=== PATIENT | female | born 1995 | race Caucasian/White ===

== ENCOUNTER 2017-04-15 17:53 | Emergency (ER) | payer MEDICAID ==
[~2017-04-15] VITALS: Ht 154.9 cm; Wt 81.0 kg
[2017-04-15 18:02] VITALS: Ht 154.9 cm; Wt 81.0 kg
[2017-04-15] MEDS ORDERED: LIDOCAINE/MYLANTA 40 ML BTL PO ONE (20:00)
[2017-04-15] MEDS ORDERED: FAMOTIDINE 20 MG TAB PO ONE (20:00)
[2017-04-15 20:16] LABS: ADD SCAN DIFF NO
[2017-04-15 20:18] LABS: BASOPHILS % 0.1 % (0.0-2.0); EOSINOPHILS # 0.1 10^3/ul (0.0-0.5); EOSINOPHILS % 0.9 % (0.0-7.0); HEMATOCRIT 45.5 % (37.0-47.0); HEMOGLOBIN 15.5 g/dl (12.0-16.0); LYMPHOCYTES # 0.8 10^3/ul (0.8-2.9); LYMPHOCYTES % 9.4 % (18.0-55.0); MEAN CORPUSCULAR HEMOGLOBIN 28.2 pg (29.0-33.0); MEAN CORPUSCULAR HGB CONC 34.1 g/dl (32.0-37.0); MEAN CORPUSCULAR VOLUME 82.9 fl (72.0-104.0); MEAN PLATELET VOLUME 10.1 fl (7.4-10.4); MONOCYTE # 0.5 10^3/ul (0.3-0.9); MONOCYTES % 5.5 % (0.0-13.0); NEUTROPHIL # 6.8 10^3/ul (1.6-7.5); NEUTROPHILS % 83.9 % (30.0-74.0); PLATELET COUNT 305 10^3/UL (140-415); RED BLOOD COUNT 5.49 10^6/ul (4.20-5.40); RED CELL DISTRIBUTION WIDTH 12.7 % (11.5-14.5); WHITE BLOOD COUNT 8.1 10^3/ul (4.8-10.8)
[2017-04-15 20:24] LABS: ADD UMIC YES; UR ASCORBIC ACID NEGATIVE (NEGATIVE); UR BILIRUBIN (Dip) NEGATIVE (NEGATIVE); UR BLOOD (Dip) NEGATIVE (NEGATIVE); UR CLARITY SLIGHTLY CLOUDY (CLEAR); UR COLOR YELLOW (YELLOW); UR GLUCOSE (Dip) NEGATIVE (NEGATIVE); UR KETONES (Dip) 1+ mg/dL (NEGATIVE); UR LEUKOCYTE ESTERASE (Dip) 2+ Leu/ul (NEGATIVE); UR MUCUS MANY /HPF (NONE SEEN); UR NITRITE (Dip) NEGATIVE (NEGATIVE); UR RBC 4 /HPF (0-5); UR SPECIFIC GRAVITY (Dip) 1.031 (1.003-1.030); UR SQUAMOUS EPITHELIAL CELL FEW /HPF (FEW); UR TOTAL PROTEIN (Dip) 1+ mg/dl (NEGATIVE); UR UROBILINOGEN (Dip) 1+ mg/dL (NEGATIVE)
[2017-04-15 20:37] LABS: ALBUMIN 4.9 g/dl (3.3-4.9); ALBUMIN/GLOBULIN RATIO 1.53; BILIRUBIN,INDIRECT 0.3 mg/dl (0-1.1); BILIRUBIN,TOTAL 0.3 mg/dl (0.2-1.3); CALCIUM 8.8 mg/dl (8.4-10.2); CREATININE 0.58 mg/dl (0.44-1.00); POTASSIUM 3.7 mmol/L (3.5-5.1); TOTAL PROTEIN 8.1 g/dl (6.1-8.1)
[2017-04-15] MEDS ORDERED: ACETAMINOPHEN 325 MG TAB PO ONE (21:30)
[2017-04-15] MEDS ORDERED: PANTOPRAZOLE (EC) 40 MG TAB PO ONE (21:30)
[2017-04-15] MEDS ORDERED: morphine 4 MG/ML VIAL IV STA (22:31)
[2017-04-15] MEDS ORDERED: IOHEXOL 300MG/ML 150 ML BTL ONE (22:43)
[2017-04-15] MEDS ORDERED: SOD CHLORIDE 0.9% 100 ML ONE (22:43)
[2017-04-15] MEDS ORDERED: ONDANSETRON 4 MG INJ IV STA (23:20)
--- NOTE | 2017-04-15 23:31 | RADRPT ---
PROCEDURE: CT Abdomen and Pelvis with contrast. CLINICAL INDICATION: Epigastric left upper quadrant pain TECHNIQUE: CT scan of the abdomen and pelvis with contrast was performed on a multi-detector high- resolution CT scanner. The patient was scanned following the intravenous administration of 100 cc o f Omnipaque 300. Coronal and sagittal reformatted images were obtained from the axial source images . Images were reviewed on a high-resolution PACS workstation. The total exam CTDI equals 17.51 mGy a nd the total exam DLP equals 947.74 mGy-cm. One or more the following dose reduction techniques were utilized: Automated exposure control, adjus tment of the mA and / or kV according to patient's size, or use of iterative reconstruction techniqu e. COMPARISON: None. FINDINGS: CT abdomen: The lung bases are clear. The heart size is normal, without pericardial thickening or effusion. Th e liver is normal in size and density without focal mass or intrahepatic biliary dilatation. The sp chino is normal in size and homogeneous in density. The stomach is partially collapsed, but is gross ly unremarkable. The pancreas as visualized is normal. Cholecystectomy. There is no evidence for biliary dilatation. The adrenal glands are symmetric and normal. The kidneys are symmetrically unr emarkable as well. No renal calculus or obstructive uropathy or mass lesion is seen. The aorta is of normal caliber. There is no retroperitoneal lymphadenopathy. The pati hepatis reg ion is clear. The bowel, as visualized, is unremarkable. Multiple less 1 cm short axis prominent ly mph nodes are seen in the mesentery which could be secondary to mesenteric adenitis. Very small umbi lical hernia containing fat only. CT pelvis: The small bowel loops situated within the pelvis are unremarkable. The pelvic organs are normal. 2. 9 cm involuting right ovarian follicle. The pelvic sidewalls and inguinal regions are clear. The si gmoid colon and rectum are unremarkable. No mass, lymphadenopathy, or free fluid is seen. No acute inflammation is seen. There is an unremarkable appendix. The bladder is normal. The surrounding osseous structures are unremarkable. IMPRESSION: Multiple less 1 cm short axis prominent lymph nodes are seen in the mesentery which could be seconda ry to mesenteric adenitis. 2.9 cm involuting right ovarian follicle. Please see above. RPTAT: HJES .Eduardo Stone MD, MD Date Time Electronically viewed and signed by .Eduardo Stone MD, MD on 04/15/2017 23:31 .S/
--- NOTE | 2017-04-16 00:21 | RADRPT ---
PROCEDURE: ULTRASOUND PELVIS - TRANSABDOMINAL ONLY CLINICAL INDICATION: 22-year-old female with pelvic pain. TECHNIQUE: Multiple sonographic images of the pelvis were obtained utilizing a transabdominal tech nique. The images were reviewed on a PACS workstation. COMPARISON: CT abdomen/pelvis April 15, 2017. FINDINGS: The uterus is visualized and measures 6.6 x 4.0 x 6.2 cm. The endometrial echo complex is within nor mal limits and measures 12.7 mm. There is minimal free fluid within the cul-de-sac. The right ovary has a normal echotexture and measures 4.2 x 2.5 x 2.7 cm. There is a right ovarian cyst present dora uring 1.9 x 1.7 x 1.3 cm. The left ovary has a normal echotexture and measures 3.2 x 2.2 x 2.1 cm. There is flow within the ovaries bilaterally. No adnexal masses are noted. IMPRESSION: 1. Right ovarian cyst. 2. Minimal pelvic free fluid. .Mu Baird MD, Date Time Electronically viewed and signed by .Mu Baird MD, on 04/16/2017 00:21 .M/
[2017-04-16] MEDS ORDERED: NITR-58 PO (00:33)
[2017-04-16] MEDS ORDERED: ACET325T33 PO (00:33)
[2017-04-16] MEDS ORDERED: PANT40TA3 PO (00:33)
[2017-04-16 00:49] VITALS: BP 120/73; PULSE 88; RESP 18; TEMP 98.4
--- NOTE | 2017-04-16 00:49 | ERD ---
ER Documentation Chief Complaint Date/Time DATE: 04/16/17 TIME: 00:45 Chief Complaint LUQ ABDOMINAL PAIN X 1 WEEK WORSE TODAY HPI 22-year-old female patient with no significant past medical history presents to the ED complaining of generalized abdominal pain that started intermittently 1 week ago. Patient denies any nausea, vomiting, diarrhea. States that her last menses was on March 20, 2017. Reports that it is mainly in the epigastric region and slightly radiates up to her chest. Reports that this may be acid reflux. Denies any smoking, alcohol use, drug use. States that she has had a previous history of a cholecystectomy, 1 month ago. Denies any fever, dysuria, urgency, frequency, chest pain, shortness of breath, wheezing, chills, constipation. ROS All systems reviewed and are negative except as per history of present illness. Medications Home Meds Active Scripts Nitrofurantoin Monohyd Macrocr* (Macrobid*) 100 Mg Capsr, 100 MG PO BID for 7 Days, CAP Prov:FRANK SCHUSTER PA-C 04/16/17 Acetaminophen* (Tylenol*) 325 Mg Tablet, 2 TAB PO Q8 Y for PAIN AND OR ELEVATED TEMP, #20 TAB Prov:FRANK SCHUSTER PA-C 04/16/17 Pantoprazole* (Protonix*) 40 Mg Tablet.dr, 40 MG PO DAILY, #20 TAB Prov:FRANK SCHUSTER PA-C 04/16/17 Allergies Allergies: Coded Allergies: No Known Drug Allergies (Verified Allergy, Mild, 03/16/15) PMhx/Soc Medical and Surgical Hx: pt denies Medical Hx, pt denies Surgical Hx History of Surgery: No Anesthesia Reaction: No Hx Neurological Disorder: No Hx Respiratory Disorders: No Hx Cardiac Disorders: No Hx Psychiatric Problems: No Hx Miscellaneous Medical Probl: No Hx Alcohol Use: No Hx Substance Use: No Hx Tobacco Use: No Smoking Status: Never smoker Physical Exam Vitals Vital Signs Date Time Temp Pulse Resp B/P Pulse Ox O2 Delivery O2 Flow Rate FiO2 04/15/17 18:02 99.8 118 18 133/82 97 Physical Exam Const: Ete-pzu-ggcencuve, well-nourished. In no acute distress. Head: Atraumatic, normocephalic Eyes: Normal Conjunctiva without injection. No purulent discharge. ENT: Normal external ear, nose. Moist oropharynx without tonsillar exudates. Non -erythematous pharynx. Uvula midline. No drooling. No trismus. Neck: No cervical midline tenderness. Full range of motion. No meningismus. No cervical lymphadenopathy. No JVD. Resp: Clear to auscultation bilaterally. No wheezing, rhonchi, rales, or crackles. No accessory muscle use. No retractions. Cardio: Regular rate and rhythm. No murmurs, rubs or gallops. Abd: Soft, generalized tenderness, non distended. Normal bowel sounds. No palpable masses. No rebound tenderness. No guarding. Negative McBurney's point. Negative psoas sign. Negative obturator sign. Skin: No petechiae or rashes Back: No midline tenderness. No CVA tenderness. Ext: No cyanosis, or edema. Neur: Awake and alert. Normal gait. Normal coordination. Psych: Normal Mood and Affect Results 24 hrs Laboratory Tests Test 04/15/17 20:03 04/15/17 20:05 White Blood Count 8.110^3/ul Red Blood Count 5.4910^6/ul Hemoglobin 15.5g/dl Hematocrit 45.5% Mean Corpuscular Volume 82.9fl Mean Corpuscular Hemoglobin 28.2pg Mean Corpuscular Hemoglobin Concent 34.1g/dl Red Cell Distribution Width 12.7% Platelet Count 55934^3/UL Mean Platelet Volume 10.1fl Neutrophils % 83.9% Lymphocytes % 9.4% Monocytes % 5.5% Eosinophils % 0.9% Basophils % 0.1% Nucleated Red Blood Cells % 0.0/100WBC Neutrophils # 6.810^3/ul Lymphocytes # 0.810^3/ul Monocytes # 0.510^3/ul Eosinophils # 0.110^3/ul Basophils # 0.010^3/ul Nucleated Red Blood Cells # 0.010^3/ul Sodium Level 137mmol/L Potassium Level 3.7mmol/L Chloride Level 103mmol/L Carbon Dioxide Level 23mmol/L Anion Gap 15 Blood Urea Nitrogen 9mg/dl Creatinine 0.58mg/dl Glucose Level 93mg/dl Calcium Level 8.8mg/dl Total Bilirubin 0.3mg/dl Direct Bilirubin 0.00mg/dl Indirect Bilirubin 0.3mg/dl Aspartate Amino Transf (AST/SGOT) 27IU/L Alanine Aminotransferase (ALT/SGPT) 39IU/L Alkaline Phosphatase 107IU/L Total Protein 8.1g/dl Albumin 4.9g/dl Globulin 3.20g/dl Albumin/Globulin Ratio 1.53 Lipase 46U/L Urine Color YELLOW Urine Clarity SLIGHTLY CLOUDY Urine pH 5.0 Urine Specific [place] 1.031 Urine Ketones 1+mg/dL Urine Nitrite NEGATIVEmg/dL Urine Bilirubin NEGATIVEmg/dL Urine Urobilinogen 1+mg/dL Urine Leukocyte Esterase 2+Jamir/ul Urine Microscopic RBC 4/HPF Urine Microscopic WBC 23/HPF Urine Squamous Epithelial Cells FEW/HPF Urine Mucus MANY/HPF Urine Hemoglobin NEGATIVEmg/dL Urine Glucose NEGATIVEmg/dL Urine Total Protein 1+mg/dl Current Medications Medications (Trade) Dose Ordered Sig/Jannet Route PRN Reason Start Time Stop Time Status Last Admin Dose Admin Miscellaneous Medication (Gi Cocktail (2)) 40 ml ONCE ONCE PO 04/15/17 20:00 04/15/17 20:01 DC 04/15/17 20:24 Famotidine (Pepcid) 20 mg ONCE ONCE PO 04/15/17 20:00 04/15/17 20:01 DC 04/15/17 20:24 Pantoprazole (Protonix Tab) 40 mg ONCE ONCE PO 04/15/17 21:30 04/15/17 21:31 DC 04/15/17 21:50 Acetaminophen (Tylenol Tab) 650 mg ONCE ONCE PO 04/15/17 21:30 04/15/17 21:31 DC 04/15/17 21:50 Morphine Sulfate (morphine) 4 mg ONCE STAT IV 04/15/17 22:31 04/15/17 22:34 DC 04/15/17 22:49 IV Flush 10 ml 10 ml STK-MED ONCE .ROUTE 04/15/17 22:43 04/15/17 22:44 DC 04/15/17 23:01 Sodium Chloride (NS) 100 ml @ ud STK-MED ONCE .ROUTE 04/15/17 22:43 04/15/17 22:44 DC 04/15/17 23:01 Iohexol (Omnipaque 300mg/ ml) 150 ml STK-MED ONCE .ROUTE 04/15/17 22:43 04/15/17 22:44 DC 04/15/17 23:01 Ondansetron HCl (Zofran Inj) 4 mg ONCE STAT IV 04/15/17 23:20 04/15/17 23:22 DC 04/15/17 23:27 Procedures/MDM This is a 22-year-old female patient status post glossectomy 1 month ago presents the ED complaining of generalized abdominal pain that started 1 week ago. Patient is afebrile and nontoxic-appearing. Patient was initially treated with Tylenol, GI cocktail, Protonix and famotidine without relief of her symptoms. Therefore patient was further worked up here in the ED. Patient was further worked up with CBC, CMP, lipase, UA, urine , CT of the abdomen and pelvis with contrast. Patient's pain and symptoms have improved after treatment with 1 L normal saline, 4 mg IV morphine, 4 mg IV Zofran. CBC: No leukocytosis. No e/o of systemic infection. No e/o anemia. CMP: No e/o severe acidosis, alkalosis, renal failure, diabetic ketoacidosis, liver disease Lipase within normal limits. Urine: 2+ leukocyte esterase with 23 white blood cells, no nitrites, no hematuria. Urine : Negative. PROCEDURE: CT Abdomen and Pelvis with contrast. CLINICAL INDICATION: Epigastric left upper quadrant pain TECHNIQUE: CT scan of the abdomen and pelvis with contrast was performed on a multi-detector high-resolution CT scanner. The patient was scanned following the intravenous administration of 100 cc of Omnipaque 300. Coronal and sagittal reformatted images were obtained from the axial source images. Images were reviewed on a high-resolution PACS workstation. The total exam CTDI equals 17.51 mGy and the total exam DLP equals 947.74 mGy-cm. One or more the following dose reduction techniques were utilized: Automated exposure control, adjustment of the mA and / or kV according to patient's size, or use of iterative reconstruction technique. COMPARISON: None. FINDINGS: CT abdomen: The lung bases are clear. The heart size is normal, without pericardial thickening or effusion. The liver is normal in size and density without focal mass or intrahepatic biliary dilatation. The spleen is normal in size and homogeneous in density. The stomach is partially collapsed, but is grossly unremarkable. The pancreas as visualized is normal. Cholecystectomy. There is no evidence for biliary dilatation. The adrenal glands are symmetric and normal. The kidneys are symmetrically unremarkable as well. No renal calculus or obstructive uropathy or mass lesion is seen. The aorta is of normal caliber. There is no retroperitoneal lymphadenopathy. The pati hepatis region is clear. The bowel, as visualized, is unremarkable. Multiple less 1 cm short axis prominent lymph nodes are seen in the mesentery which could be secondary to mesenteric adenitis. Very small umbilical hernia containing fat only. CT pelvis: The small bowel loops situated within the pelvis are unremarkable. The pelvic organs are normal. 2.9 cm involuting right ovarian follicle. The pelvic sidewalls and inguinal regions are clear. The sigmoid colon and rectum are unremarkable. No mass, lymphadenopathy, or free fluid is seen. No acute inflammation is seen. There is an unremarkable appendix. The bladder is normal. The surrounding osseous structures are unremarkable. IMPRESSION: Multiple less 1 cm short axis prominent lymph nodes are seen in the mesentery which could be secondary to mesenteric adenitis. 2.9 cm involuting right ovarian follicle. Please see above. PROCEDURE: ULTRASOUND PELVIS - TRANSABDOMINAL ONLY CLINICAL INDICATION: 22-year-old female with pelvic pain. TECHNIQUE: Multiple sonographic images of the pelvis were obtained utilizing a transabdominal technique. The images were reviewed on a PACS workstation. COMPARISON: CT abdomen/pelvis April 15, 2017. FINDINGS: The uterus is visualized and measures 6.6 x 4.0 x 6.2 cm. The endometrial echo complex is within normal limits and measures 12.7 mm. There is minimal free fluid within the cul-de-sac. The right ovary has a normal echotexture and measures 4.2 x 2.5 x 2.7 cm. There is a right ovarian cyst present measuring 1.9 x 1.7 x 1.3 cm. The left ovary has a normal echotexture and measures 3.2 x 2.2 x 2.1 cm. There is flow within the ovaries bilaterally. No adnexal masses are noted. IMPRESSION: 1. Right ovarian cyst. 2. Minimal pelvic free fluid. Patient symptoms could likely be due to mesenteric adenitis, possible urinary tract infection, and a right ovarian cyst. There is low suspicion for ovarian torsion, ectopic , gastritis, GERD, peptic ulcer disease, cholecystitis , choledocholithiasis, cholangitis, pancreatitis, appendicitis, bowel obstruction, ileus, volvulus, nephrolithiasis, pyelonephritis, hepatitis, perforated viscus, diverticulitis, abdominal hernia, acute abdomen, mesenteric ischemia or other emergent conditions. Discharge medications: Macrobid, Tylenol, Protonix Follow up with primary care physician in 1-2 days for referral to test driver. Instructed patient to return to the ED sooner for any worsening symptoms. Patient's questions were answered. Patient understood and agreed with discharge plan. Patient discharged stable. Departure Diagnosis: Primary Impression: Abdominal pain Abdominal location: unspecified location Qualified Code: R10.9 - Abdominal pain, unspecified location Condition: Stable Patient Instructions: Abdominal Pain, Ovarian Cyst, Adenitis, Mesenteric Referrals: COMMUNITY CLINICS YOU HAVE RECEIVED A MEDICAL SCREENING EXAM AND THE RESULTS INDICATE THAT YOU DO NOT HAVE A CONDITION THAT REQUIRES URGENT TREATMENT IN THE EMERGENCY DEPARTMENT. FURTHER EVALUATION AND TREATMENT OF YOUR CONDITION CAN WAIT UNTIL YOU ARE SEEN IN YOUR DOCTORS OFFICE WITHIN THE NEXT 1-2 DAYS. IT IS YOUR RESPONSIBILITY TO MAKE AN APPOINTMENT FOR FOLOW-UP CARE. IF YOU HAVE A PRIMARY DOCTOR --you should call your primary doctor and schedule an appointment IF YOU DO NOT HAVE A PRIMARY DOCTOR YOU CAN CALL OUR PHYSICIAN REFERRAL HOTLINE AT IF YOU CAN NOT AFFORD TO SEE A PHYSICIAN YOU CAN CHOSE FROM THE FOLLOWING [facility] [address] [facility]. [facility] [address] [facility]. [facility] [address] [facility] [facility] [address] [facility]. [facility] [address] [facility]. [facility]. [address] [facility]. [facility] YOU HAVE RECEIVED A MEDICAL SCREENING EXAM AND THE RESULTS INDICATE THAT YOU DO NOT HAVE A CONDITION THAT REQUIRES URGENT TREATMENT IN THE EMERGENCY DEPARTMENT. FURTHER EVALUATION AND TREATMENT OF YOUR CONDITION CAN WAIT UNTIL YOU ARE SEEN IN YOUR DOCTORS OFFICE WITHIN THE NEXT 1-2 DAYS. IT IS YOUR RESPONSIBILITY TO MAKE AN APPOINTMENT FOR FOLOW-UP CARE. IF YOU HAVE A PRIMARY DOCTOR --you should call your primary doctor and schedule and appointment IF YOU DO NOT HAVE A PRIMARY DOCTOR YOU CAN CALL OUR PHYSICIAN REFERRAL HOTLINE AT . IF YOU CAN NOT AFFORD TO SEE A PHYSICIAN YOU CAN CHOSE FROM THE FOLLOWING [facility] INSTITUTIONS: [facility] [address] [place] [address] [facility] [address] [place] [address] [facility] [address] [place] [address] [facility] URGENT CARE/SPECIALTIES [employer] [place] [address] [facility] [address] [place] [address] OFFICE FAX , [facility] [address] [place], [place] [id number] [facility] [address] [place] [address] [address], [facility] [address] [facility], [facility] [address] [address] [address] [facility] [address] [place] [address] [facility] [address] [place] [address] [facility] [id number] - CHERELLE CRUZ [address], [facility] [address] [address], [facility] [address] [facility] [address], [facility] [address] [address] [facility] [place] [facility] [address] [place], [place] [id number] [facility] Hours: 8:00 am - 5:00 pm Additional Instructions: Call your primary care doctor TOMORROW for an appointment during the next 1-2 days for a referral to a LINER WORKER.See the doctor sooner or return here if your condition worsens before your appointment time. FRANK SCHUSTER PA-C Apr 16, 2017 00:49 FRANK SCHUSTER PA-C Apr 16, 2017 00:49
== END 2017-04-16 00:51 | disposition home or self-care (01) ==
LOC: FTE 17:53
DX: R10.84 Generalized abdominal pain (principal)
CPT/HCPCS: 36415; 74177; 76856; 80053; 81001; 83690; 85025; 96374; 96375; J2270; J2405; Q9967; Z7502; Z7610